=== PATIENT | female | born 1985 | race Two or more races ===

== ENCOUNTER 2023-08-13 12:38 | Emergency (ER) | payer MEDICAID ==
[~2023-08-13] VITALS: Ht 157.5 cm; Wt 62.6 kg
[2023-08-13 13:13] LABS: Basophils # (auto) 0 10 ^3/uL (0-0.2); Eosinophils # (auto) 0 10 ^3/uL (0-0.8); Eosinophils % (auto) 0.1 % (0.0-7.0); Lymphocytes # (auto) 1.3 10 ^3/uL (0.4-5.4); Mean Corpuscular Hgb Conc. 33.2 g/dL (32.0-36.0); Monocytes # (auto) 0.6 10 ^3/uL (0-1.3); Nucleated Red Blood Cells % 0.1 %; White Blood Cell 7.4 10^3/uL (4.4-10.8)
[2023-08-13 13:15] LABS: Basophils % (auto) 0.4 % (0.0-2.0); Hematocrit 39.9 % (36.0-46.0); Hemoglobin 13.2 g/dL (12.2-16.2); Lymphocytes % (auto) 17.4 % (10.0-50.0); Mean Corpuscular Hemoglobin 26.9 pg (28.0-32.0); Monocytes % (auto) 8.5 % (0.0-12.0); Neutrophils # (auto) 5.4 10 ^3/uL (1.6-8.6); Neutrophils % (auto) 73.6 % (37.0-80.0); Red Blood Cells 4.92 10^6/uL (4.0-5.20); Red Cell Distribution Width 15.6 % (11.8-14.3)
[2023-08-13 13:29] LABS: Alanine Aminotransferase 25 U/L (7-40); Albumin 4.9 g/dL (3.2-4.8); Alkaline Phosphatase 48 U/L (46-116); Anion Gap 14 (5-15); Aspartate Aminotransferase 20 U/L (13-40); BUN/Creatinine Ratio 14.3 (10.0-20.0); Bilirubin, Total 0.6 mg/dL (0.2-1.0); Blood Urea Nitrogen 10 mg/dL (9-23); Calcium 8.7 mg/dL (8.7-10.4); Carbon Dioxide 18 mmol/L (20-30); Chloride 104 mmol/L (98-107); Glucose 94 mg/dL (74-106); Sodium 136 mmol/L (136-145); Total Protein 7.9 g/dL (5.7-8.2)
[2023-08-13] MEDS ORDERED: SODIUM CHLORIDE 0.9% 1,000 ML IV ONE (13:30)
[2023-08-13 13:47] VITALS: BP 118/88; PULSE 94; RESP 15; TEMP 98.3; O2SAT 98
[2023-08-13] MEDS ORDERED: POTASSIUM CHL 20 Meq TABLET PO ONE (14:45)
[2023-08-13 15:28] LABS: Urine Bacteria NONE SEEN /hpf (None Seen); Urine Blood TRACE /uL (Negative); Urine Clarity HAZY (Clear); Urine Color Yellow (Yellow); Urine Mucus FEW (None Seen); Urine Protein, UAD TRACE (Negative); Urine Specific Gravity 1.027 (1.001-1.035); Urine Urobilinogen Normal (Negative); Urine WBC 9 /hpf (0 - 5); Urine pH 5.5 (5.0-8.0)
[2023-08-13 15:49] LABS: Amphetamine Screen, Urine Neg (NEGATIVE); Barbiturate Scree,Urine Neg (NEGATIVE); Benzodiazephine Screen, Urine Neg (NEGATIVE); Cocaine Screen, Urine Neg (NEGATIVE); Opiate Scree,Urine Neg (NEGATIVE); Phencyclidine Screen, Urine Neg (NEGATIVE)
[2023-08-13 15:50] LABS: Cannabinoid Screen, Urine Pos (NEGATIVE)
[2023-08-13 16:44] LABS: COVID19 ANTIGEN SOFIA FIA NEGATIVE (NEGATIVE)
[2023-08-13] MEDS ORDERED: NITR-87 PO (16:58)
[2023-08-14 08:06] LABS: Free Thyroxine Index 1.9 (1.2-4.9); Thyroxine (T4) 7.2 ug/dL (4.5-12.0)
== END 2023-08-13 17:06 | disposition home or self-care (01) ==
LOC: ER 12:38
DX: R55 Syncope and collapse (principal); N39.0 Urinary tract infection, site not specified; F12.10 Cannabis abuse, uncomplicated; Z20.822 Contact with and (suspected) exposure to COVID-19; Z79.899 Other long term (current) drug therapy; Z32.02 Encounter for pregnancy test, result negative
CPT/HCPCS: 36415; 80053; 80307; 81001; 81025; 83735; 84443; 84484; 85025; 87426; 93005; 96360; 99284; J7030

== ENCOUNTER 2024-02-05 21:24 | Emergency (ER) | payer MEDICAID ==
[~2024-02-05] VITALS: Ht 157.5 cm; Wt 63.5 kg
[~2024-02-05 21:24] MED LIST: NITR-87 PO
[2024-02-05] MEDS: diphenhdrAMINE HCL 50 MG/1 ML VL IM ONE (21:52)
[2024-02-05] MEDS: DexAMETHasone SOD PHOS 10MG/1ML VIAL INJ IM ONE (21:52)
[2024-02-06 00:41] VITALS: BP 106/76; PULSE 64; RESP 18; TEMP 98.4; O2SAT 99
== END 2024-02-06 00:49 | disposition home or self-care (01) ==
LOC: ER 21:24
DX: T78.49XA Other allergy, initial encounter (principal); E07.9 Disorder of thyroid, unspecified; F12.10 Cannabis abuse, uncomplicated; Z98.51 Tubal ligation status; X58.XXXA Exposure to other specified factors, initial encounter
CPT/HCPCS: 96372; 99284; J1100; J1200